=== PATIENT | male | born 1970 ===

== ENCOUNTER → 2018-08-20 21:22 | Outpatient (REF) | payer OTHER, SELFPAY ==
[2018-08-20 21:26] LABS: Bacteria Urine None Seen; RBC Urine None Seen (0-5/HPF); WBC Urine None Seen (0-5/HPF)
[2018-08-20 22:19] LABS: Appearance Urine UA CLEAR; Bilirubin Urine UA NEGATIVE (NEGATIVE); Color Urine UA YELLOW; Glucose Urine UA NEGATIVE (Normal); Ketones Urine UA NEGATIVE (NEGATIVE); Leukocyte Esterase Urine UA NEGATIVE (NEGATIVE); Nitrite Urine UA NEGATIVE (Negative); Occult Blood Urine UA NEGATIVE (Negative); Protein Urine UA NEGATIVE (Negative); Specific Gravity Urine UA 1.025 (1.000-1.035); Urobilinogen Urine UA 0.2 E.U./dL (0.2); pH Urine UA 6.5 (4.5-8.0)
[2018-08-20 22:21] LABS: Add Manual Diff / Slide Review NO; Eosinophils Percent Auto 1.5 % (2-4); Hematocrit 48.8 % (41-53); Hemoglobin 16.7 g/dL (13.5-17.5); Lymphocytes Percent Auto 33.5 % (25-40); Mean Corpuscular HGB Conc 34.2 % (30-36); Mean Corpuscular Hemoglobin 30.6 PG (26-34); Mean Corpuscular Volume 89.3 fL (80-100); Monocytes Percent Auto 9.4 % (3-14); Neutrophils Absolute Auto 3100 /uL (1500-7000); Neutrophils Percent Auto 54.6 % (50-75); Platelet Count 199 X10^3/uL (150-400); Red Blood Cell Count 5.46 X10^6/uL (4.5-5.9); Red Cell Distribution Width 12.5 % (11.6-14.8); White Blood Cell Count 5.6 X10^3/uL (4.5-11.0)
[2018-08-20 23:15] LABS: Amorphous Sediment Urine 1+; Mucus Urine 1+ (Negative)
[2018-08-20 23:16] LABS: Culture Indicated Urine Cult Not Indicated
[2018-08-21 01:16] LABS: Alanine Aminotransferase 44 IU/L (21-72); Albumin 4.3 g/dL (3.5-5.0); Albumin Globulin Ratio 1.5 (1.0-2.8); Alkaline Phosphatase 55 U/L (38-126); Aspartate Aminotransferase 35 IU/L (17-59); Bilirubin Total 0.9 mg/dL (0.2-1.3); Blood Urea Nitrogen 26 mg/dL (9-20); Calcium 9.8 mg/dL (8.4-10.2); Carbon Dioxide 29 mmol/L (22-32); Chloride 103 mmol/L (98-107); Cholesterol 191 mg/dL (140-199); Estimated Glomerular Filt Rate > 60.0 mL/min (>60); Globulin 2.9 g/dL (1.7-4.1); Glucose 89 mg/dL (70-100); HDL Cholesterol 47 mg/dL (40-60); HEMOLYSIS < 15 (0-50); LDL Cholesterol Calculated 123 mg/dL (<100); Potassium 4.5 mmol/L (3.4-5.1); Sodium 145 mmol/L (137-145); Total Protein 7.2 g/dL (6.3-8.2); Triglycerides 107 mg/dL (35-150)
[2018-08-21 01:46] LABS: TSH w/ Reflex to FT4 1.07 uIU/mL (0.47-4.68)
[2018-08-21 02:33] LABS: Ferritin 44.4 ng/mL (17.9-464)
[2018-08-22 14:35] LABS: PSA Total 0.49 ng/mL (< 4.01)
== END ==
LOC: LAB 21:22
PROVIDERS: Visit Provider Naturopath
DX: Z00.00 Encounter for general adult medical examination without abnormal findings (principal); Z13.89 Encounter for screening for other disorder; Z80.42 Family history of malignant neoplasm of prostate
CPT/HCPCS: 80053; 80061; 81001; 82728; 84153; 84154; 84443; 85025